=== PATIENT | female | born 1965 | race Caucasian/White ===

== ENCOUNTER → 2020-10-05 13:03 | Outpatient (BNVA) | payer OTHER, SELFPAY | PROVIDERS: PCP Orthopaedic Surgery; Referring Provider Orthopaedic Surgery; Visit Provider Surgery | DX: Z76.89 Persons encountering health services in other specified circumstances (principal) ==

== ENCOUNTER 2020-10-18 07:16 | Outpatient (REF) | payer OTHER, SELFPAY ==
--- NOTE | 2020-10-18 07:27 | ECG_ITS ---
Test Reason : ANESTHESIA PRE OP Blood Pressure : / mmHG Vent. Rate : 079 BPM Atrial Rate : 079 BPM P-R Int : 152 ms QRS Dur : 094 ms QT Int : 372 ms P-R-T Axes : 063 024 058 degrees QTc Int : 426 ms Normal sinus rhythm Normal EKG When compared with ECG of 10-APR-2020 18:44, No significant change was found Referred By: Tg Black Electronically Signed By:JOVANI MYERS
[2020-10-18 07:58] LABS: Glucose Urine UA NEG (NEG); Leukocyte Esterase Urine NEG (NEG); Nitrite Urine NEG (NEG); PH 5.5 (5.0-8.0); Specific Gravity - Urine 1.025 (1.005-1.025); Urine Blood NEG (NEG); Urine Ketones NEG (NEG); Urine Protein NEG (NEG-TRACE)
[2020-10-18 08:00] LABS: Appearance Urine CLEAR; Color Urine YELLOW
[2020-10-18 08:05] LABS: Basophils Percent Auto 0.4 % (0-2); Eosinophils Absolute Auto 0.3 X10*3/uL (0.0-0.4); Eosinophils Percent Auto 3.6 % (0-4); Hematocrit 46.3 % (37-47); Hemoglobin 15.1 g/dl (12.0-16.0); Imm Gran Abs Auto 0.02 X10*3/uL (0.00-0.03); Imm Gran Pct Auto 0.3 % (0.0-0.4); Lymphocytes Absolute Auto 2.9 X10*3/uL (1.2-4.9); Lymphocytes Percent Auto 37.3 % (20-40); MANUAL DIFF FLAG NO; Mean Corpuscular HGB Conc 32.6 g/dl (31.0-35.0); Mean Corpuscular Hemoglobin 31.2 pg (27.0-33.0); Mean Corpuscular Volume 95.7 fL (80-98); Mean Platelet Volume 10.5 fL (9.4-12.3); Monocytes Absolute Auto 0.6 X10*3/uL (0.1-1.2); Monocytes Percent Auto 7.1 % (2-11); Neutrophils Absolute Auto 4.1 X10*3/uL (2.0-8.3); Neutrophils Percent Auto 51.3 % (45-73); Platelet Count 284 X10*3/uL (160-400); Red Blood Count 4.84 X10*6/uL (4.20-5.50); Red Cell Distribution Width 12.5 % (11.0-16.0); White Blood Count 7.9 X10*3/uL (4.8-10.8)
[2020-10-18 08:31] LABS: Anion Gap 12 (12-20); Blood Urea Nitrogen 16 mg/dL (9-16); Calcium 9.3 mg/dL (8.4-10.2); Carbon Dioxide 28 mmol/L (22-29); Chloride 104 mmol/L (96-108); Estimated Glomerular Filt Rate > 60; Glucose Random 115 mg/dL (60-115); Potassium 3.8 mmol/l (3.3-5.1); Sodium 140 mmol/L (135-145)
== END 2020-10-18 07:17 | disposition home or self-care (01) ==
LOC: HO.LAB 07:16
PROVIDERS: PCP Internal Medicine; Visit Provider Surgery
DX: Z01.818 Encounter for other preprocedural examination (principal); R06.02 Shortness of breath; Z20.828 Contact with and (suspected) exposure to other viral communicable diseases
CPT/HCPCS: 36415; 80048; 81003; 85025; 93005; U0003

== ENCOUNTER 2020-10-24 09:56 | Inpatient (IN) | payer OTHER, SELFPAY ==
[2020-10-16 13:59] VITALS: BMI 25.0
--- NOTE | 2020-10-23 10:15 | HO.ANESPROP2 ---
Documented by User: Shantel Levi 10/23/20 10:24 HPI - Anesthesia Eval Consult details Narrative: 54yo F for Hernia Repair Incisional, w/ mesh Severe PONV after 11/2018 bowel case, pt had post-op ileus PMFSH Past Medical History Medical History ACL tear Anxiety Back pain History of small bowel obstruction Knee MCL sprain Knee pain Patellofemoral arthritis of left knee PONV (postoperative nausea and vomiting) Shortness of breath Family History Family History Father Lung disease Mother Hypertension Sister No problems noted. Son No problems noted. Daughter No problems noted. Surgical History Surgical History H/O colectomy H/O lithotripsy H/O vaginal surgery History of arthroscopy of right knee History of colostomy History of colostomy reversal Hx of appendectomy Hx of colonoscopy Hx of cystoscopy Previous back surgery Social History Social History (Updated 10/24/20 @ 07:33 by Deann Easley) Alcohol intake: current Alcohol intake frequency: a few times a month Smoking Status: Current every day smoker Tobacco Type: Cigarette Packs Per Day: 0 Cigarettes Per Day: 4 Years Smoked: 10+ Smoked in Last 30 Days: Yes Meds Allergies Allergy/AdvReac Type Severity Reaction Status Date / Time morphine [MORPHINE] Allergy Intermediate RASH, Verified 10/24/20 06:25 facial itching lorazepam [LORAZEPAM] Allergy Unknown DISORIENTATED- Verified 10/24/20 06:25 DEPRESSION Home Medications Medication Instructions Recorded Confirmed Type dicyclomine 20 mg tablet 20 mg PO .qhs PRN tab 10/05/20 10/16/20 History polyethylene glycol 3350 17 17 g PO DAILY PRN 10/05/20 10/16/20 History gram/dose oral powder Exam Exam Date and Time: October 23, 2020 1015 Height,Weight and Vital Signs: Height 5 ft 6 in Weight 70.307 kg Pertinent Lab Results Pertinent Lab Results: Laboratory Tests 10/18/20 07:30 Blood Type O Positive Antibody Screen NEGATIVE Laboratory Tests 10/18/20 10/18/20 07:35 07:35 WBC 7.9 Hgb 15.1 Hct 46.3 Plt Count 284 Sodium 140 Potassium 3.8 Chloride 104 Carbon Dioxide 28 BUN 16 Creatinine 0.83 Narrative Narrative: EKG 09/2020: Normal sinus rhythm Normal EKG When compared with ECG of 10-APR-2020 18:44, No significant change was found Assessment and Plan Assessment Anesthesia Assessment: Chart Reviewed Documented by User: Deann Easley 10/24/20 07:35 PMFSH Past Medical History Medical History ACL tear Anxiety Back pain History of small bowel obstruction Knee MCL sprain Knee pain Patellofemoral arthritis of left knee PONV (postoperative nausea and vomiting) Shortness of breath Family History Family History Father Lung disease Mother Hypertension Sister No problems noted. Son No problems noted. Daughter No problems noted. Family history of problems with anesthesia: No Surgical History Surgical History H/O colectomy H/O lithotripsy H/O vaginal surgery History of arthroscopy of right knee History of colostomy History of colostomy reversal Hx of appendectomy Hx of colonoscopy Hx of cystoscopy Previous back surgery History of Problems with Anesthesia: Yes (PONV after colostomy reversal) Social History Social History (Updated 10/24/20 @ 07:33 by Deann Easley) Alcohol intake: current Alcohol intake frequency: a few times a month Smoking Status: Current every day smoker Tobacco Type: Cigarette Packs Per Day: 0 Cigarettes Per Day: 4 Years Smoked: 10+ Smoked in Last 30 Days: Yes Meds Allergies Allergy/AdvReac Type Severity Reaction Status Date / Time morphine [MORPHINE] Allergy Intermediate RASH, Verified 10/24/20 06:25 facial itching lorazepam [LORAZEPAM] Allergy Unknown DISORIENTATED- Verified 10/24/20 06:25 DEPRESSION Home Medications Medication Instructions Recorded Confirmed Type dicyclomine 20 mg tablet 20 mg PO .qhs PRN tab 10/05/20 10/16/20 History polyethylene glycol 3350 17 17 g PO DAILY PRN 10/05/20 10/16/20 History gram/dose oral powder Exam Height,Weight and Vital Signs: Vital Signs Temp Pulse Resp BP Pulse Ox 10/24/20 06:35 96.9 F 81 18 127/77 99 Pertinent Lab Results Pertinent Lab Results: Lab Results 10/18/20 10/24/20 Range/Units 07:30 06:19 COVID-19 (REBECCA) Negative (Negative) COVID-19 Clin Com See Note Blood Type O Positive Antibody Screen NEGATIVE Airway Mallampati Class: II TM Dist: >3cm Neck ROM: Full Loose/Missing/Broken Teeth: No Heart: RRR Lungs: CTAB Assessment and Plan Final Anesthetic Review NPO: Yes ASA Class: II Final Preanesthetic Review: No Changes in Pt Med Stat, Meds/Allgs Chart Reviewed, Consent Obtained/Reviewed and Anes Risks/Benef Reviewed Patient Risk: Low Procedure Risk: Intermediate Assessment/Block/Sedation in SS: Assess/Block/Sedation-SS Anesthetic Plan Anesthetic Plan: GA Disposition: Standard PACU
--- NOTE | 2020-10-23 15:06 | MHC.SHP ---
Pre-Procedural Eval Section B Chief Complaint: hernia Allergies: Allergies Allergy/AdvReac Type Severity Reaction Status Date / Time morphine [MORPHINE] Allergy Intermediate RASH, Unverified 10/16/20 13:40 facial itching lorazepam [LORAZEPAM] Allergy Unknown DISORIENTATED- Unverified 10/16/20 13:40 DEPRESSION Plan I have reviewed the history and physical and performed a pertinent physical examination on my patient. No changes have occurred unless specified.
[2020-10-24] VITALS (18 sets, daily range): BP systolic 112–153; BP diastolic 60–98; PULSE 74–96; RESP 12–22; TEMP 36.1–37.3; O2SAT 95–100
[2020-10-24 06:47] LABS: COVID-19 Test Negative (Negative)
[2020-10-24] MEDS: Lactated Ringers 1,000 ML 100 ML IVCONT (07:08)
[2020-10-24] MEDS: Scopolamine 1.5 MG PATCH.TD.3 TRANSDERMA (07:08)
[2020-10-24] MEDS: HYDROmorphone HCl 0.5 MG/0.5 ML SYRINGE 0.25 MG IVPUSH ×8 (10:08→20:00)
--- NOTE | 2020-10-24 10:10 | PM.OP ---
Brief Operative Note Date of Service: 10/24/20 Pre-op diagnosis: Symptomatic incisional hernia Post-op diagnosis: same Procedure: Laparoscopic and open components of incisional hernia repair with mesh, lysis of adhesions, and Jose block Implants: Ventralight ST hernia mesh size 15 cm x 20 cm and capsure attacks Surgeon: Tg Black MD Anesthesia: GETA Hand Gluer And Slicer: Roselia Clark Estimated blood loss (mL): 10 Pathology: none sent Condition: stable Disposition: PACU
--- NOTE | 2020-10-24 10:10 | PM.DS ---
DS: Providers Provider Date of Service: 10/25/20 Primary care physician: Chaka Gore MD DS: Medications Discharge Medications Home Medications: Home Medications Medication Instructions Recorded Confirmed dicyclomine 20 mg tablet 20 mg PO .qhs PRN tab 10/05/20 10/16/20 polyethylene glycol 3350 17 17 g PO DAILY PRN 10/05/20 10/16/20 gram/dose oral powder DS: Summary Time Spent with Patient Time attestation: DATE OF SERVICE: October 24, 2020 ADMITTING DIAGNOSES: incisional hernia s/p colectomy and colostomy reversal DISCHARGE DIAGNOSES: same PROCEDURE PERFORMED: open and laparoscopic repair of incisional hernia with mesh DISCHARGE MEDICATIONS: 1. DISCHARGE INSTRUCTIONS: She should ambulate while at home to avoid any bloodclots in her lower extremities. She should call with any questions or concerns such as increase in abdominal pain, persistent nausea, vomiting, redness and drainage from her incisions, fever, chills, shortness of breast, or chest pain beyond what is normal for her. The patient should avoid all heavy lifting greater than 5 pounds for the next 4 weeks. The patient is already scheduled to follow up with me in 2 weeks, but should call the office with any questions prior to that follow up appointment. The patient should not advance her diet until she is seen in the office for the 2 week appointment. HOSPITAL COURSE: The patient was admitted after undergoing laparoscopic and open incisional hernia with mesh. She was started on a clear liquid diet the day of surgery and was tolerating well without nausea or vomiting. Her pain was controlled on IV Dilaudid, Acetaminophen and po oxycodone. All labs were within normal limits. On post-operative day #1 she was feeling better, and she was tolerating her diet well. She was discharged home with KLAUS drain in place DISCHARGE DISPOSITION: Home.Total time spent providing and/or coordinating discharge services: 30 minutes Physical Exam Vital Signs: Vital Signs: Last Vital Signs Temp 98.9 F 10/24/20 09:58 Pulse 94 10/24/20 10:03 Resp 14 10/24/20 10:03 BP 140/82 H 10/24/20 10:03 Pulse Ox 100 10/24/20 10:03 Body Mass Index 25.0 DS: Data Data Completed and Pending Labs on day of discharge: 10/18/20 07:30 Type and Screen Routine 10/24/20 06:19 COVID-19 ID NOW (Gonzalez) Stat 10/24/20 06:20 Acetaminophen [Ofirmev] 1,000 mg in 100 ml IV PREOP Scopolamine [Transderm-Scop] 1.5 mg TRANSDERMA PREOP ONE cefoTEtan disod/Dextrose,Iso [Cefotan] 2 gm in 50 ml IV PREOP 10/24/20 Breakfast NPO Diet Laboratory Last Values COVID-19 (REBECCA) Negative (Negative) 10/24/20 06:19 COVID-19 Clin Com See Note 10/24/20 06:19 Blood Type O Positive 10/18/20 07:30 Antibody Screen NEGATIVE 10/18/20 07:30 Discharge Plan Discharge Anticipated Discharge Date/Time: 10/25/20 11:06 Patient Disposition: Home, Self-Care Referrals: Chaka Gore MD [Primary Care Provider] - Discharge Medications: New docusate sodium [Colace] 100 mg capsule 100 mg PO BID Qty: 30 RF: 1 hydromorphone [Dilaudid] 2 mg tablet 2 mg PO Q4H PRN (Reason: pain (scale score 7-10)) Qty: 40 RF: 0 acetaminophen 500 mg tablet 1,000 mg PO Q6H Qty: 60 RF: 1 Continued dicyclomine 20 mg tablet 20 mg PO .qhs PRN (Reason: Abdominal Discomfort) RF: 0 Discontinued polyethylene glycol 3350 17 gram/dose powder 17 g PO DAILY PRN (Reason: Constipation) RF: 0 Discharge Orders: Discharge Order (Routine); Ordered 10/25/20 Ordered By: Tg Black Diet: regular diet Activity on Discharge: No heavy lifting Activity Restrictions/Additional Instructions: No tub baths, sex or returning to work until discussed at first post op appointment. No exercise, alcohol, tobacco or illegal drug use. Continue to use incentive spirometer hourly while awake. Walk in home for 5- 10 minutes every 2 hours during the first week. Continue phase 3 diet until first post op appointment. Follow all instructions in the bariatric handbook and call with any questions.Discharge Instructions 1. Please call your doctor or come back to the emergency room should any new symptoms arise. 2. You will receive a courtesy call from [facility] 24-48 hours after discharge. 3. Activity: abstain from alcohol, practice limited stair climbing, no bending, no driving, no exercise, no illicit substances, no lifting, no sex, no tub bath, no work. (*no heavy lifting for 8 weeks) 4. Diet: regular 5. Dressing Change/Wound Care: Keep dressings intact as long as they are clean and dry. If the area is tender, you may apply an ice pack for short intervals (no more than 20 minutes on, followed by at least 20 minutes off). Do not apply heat. Do not use creams, lotions, or topical antibiotics unless instructed to do so by your surgeon. These can cause infection or allergic reaction. 6. Call your doctor if: - Your temperature exceeds 101.5 F - You experience excessive pain or swelling - You have an unexpected reaction to medication - You have excessive bleeding - You experience continued vomiting/nausea - Your incision begins to separate - Your incision shows signs of infection such as increased redness, swelling, excessive pain, heat, or drainage (light blood or clear fluid is normal) 7. Drain care - you have 1 drain that needs to be emptied daily. Please call if drainage becomes bloodier, should progressivley become clearer, or has cloudy fluid. 8. General instructions: No lifting greater than 5 lbs for the next 4 weeks[address] driving within 24 hours of taking narcotic pain medications. If you do not move your bowels in the next 2 days, please take milk of magnesia over the counter. Please follow the post op diet and do not advance your diet until you are seen in the office in about 2 weeks. Please walk around your home every hour or two to prevent blood clots from forming in your legs. You do not need to wake from sleeping to walk. Please sleep in a bed or couch to prevent kinking at the hips and knees. Please take your incentive spirometer (your lung telephonic nurse) home with you and use it for the next few days to prevent pneumonias. You may shower, no hot tubs, baths or swimming pools. Please call the office with any questions or concerns such as increasing abdominal pain, fever, chills, shortness of breath, chest pain, leg pain or swelling, or redness or drainage from your incisions. Do not hesitate to contact the office with any questions at . Visit Report Forms: Patient Portal Discharge page Care Plan Goals: resolution of abd pain Health Concerns: incisional hernia Plan of Treatment: see discharge instructions
--- NOTE | 2020-10-24 11:04 | OP_ITS ---
SURGEON: Tg Black MD PREOPERATIVE DIAGNOSIS: Incisional hernia. POSTOPERATIVE DIAGNOSIS: Incisional hernia. PROCEDURE PERFORMED: Open and laparoscopic component of an incisional hernia repair with mesh. ESTIMATED BLOOD LOSS: Less than 10 mL. COMPLICATIONS: None. ANESTHESIA: General endotracheal. ASSISTANTS: Roselia Clark PA-C. SPECIMENS: None. CONDITION: Postprocedure, good. DESCRIPTION OF PROCEDURE: The patient was brought into the operating room, placed on operating table in supine position. Normal DVT prophylaxis was instituted. The patient received 2 g of IV cefotetan preoperatively. General anesthesia was induced. The abdomen was prepped and draped in normal sterile fashion using ChloraPrep. Next, a safety time-out was performed. Next, a mixture of 1% lidocaine with epinephrine, 0.25% Marcaine plain was used to anesthetize the planned incision site in the midline. A #15 scalpel was used to make an incision in the midline overlying the previous laparotomy incision. Subcutaneous tissues were dissected down to the level of the hernia defect. The hernia defect was opened. A finger was placed into the abdomen to protect any underlying viscera. The fascia was then opened to the length of the skin incision. The defect was about 9 cm long x 6 cm wide. We then cleared off the fascia anteriorly for about 6 cm circumferentially around the edges of the hernia defect. We then placed three 5 mm laparoscopic ports under direct vision during the open portion of the case. We placed one in the left lower quadrant and two in the right lateral abdomen. We placed a 12 mm port in the left upper quadrant laterally. We then closed the midline fascia using several interrupted #1 Prolene sutures of [id number]. We did that, tied the sutures down. We chose a suitable size mesh, which was a 15 cm x [address] mesh with Echo 2 Positioning System. We placed this mesh intra-abdominally and positioned it, so that it was lying centrally over the hernia defect. We then tied down all of these fascial closure sutures. There was no hernia defect. We then insufflated the abdomen to 15 mmHg. We used a 5 mm 30 degree laparoscope and placed this into the left lower quadrant 5 mm port. We could visualize the mesh in good position centrally lying over the hernia defect. There was no leaking of any gas from the midline surgical incision closure. We then used a CapSure tacker to tack the mesh at the edges of the mesh circumferentially. We then removed the Echo Positioning System through the 12 mm port and all components of the positioning system was intact when removed. We then continued to tack at the edges of mesh circumferentially using both the left-sided port and the right-sided port, so that the mesh was well apposed to the abdominal wall and there was no laxity within the mesh. We then used a second CapSure tacker to place surrounding the fascial closure. The mesh was well apposed to the abdominal wall. There was no evidence of any laxity in the mesh. The viscera appeared to be normal underneath as well. We took laparoscopic pictures of the completed mesh repair. We then removed the 5 mm ports from the right side of the abdomen. Of note, we did perform a tap block through left and right side of the abdomen prior to tacking the mesh for better pain control postoperatively. We then desufflated the abdomen through the last remaining 2 ports on the left side of the abdomen and removed the last port. We placed a #7 Leo-Bruno drain in the subcutaneous tissues overlying the fascial closure site. We brought the tubing out of the subcutaneous 5 mm port site in the left lower quadrant. We secured the tubing to the abdominal wall using a 2-0 nylon suture. We then closed the deep dermal tissues in the midline using a running 3-0 Vicryl suture. We also tacked down the umbilicus to the fascia using a single interrupted suture of 3-0 Vicryl. We then reapproximated the laparoscopic ports using a 3-0 Vicryl suture in a subcuticular manner. We closed the skin with santi. All counts were correct at the end of the case. There were no complications. The Leo-Bruno drain was placed above suction. We placed a 4 x 4 dressings over the midline surgical incision. Steri-Strips on the laparoscopic ports and Band-Aids on the laparoscopic port sites. We placed tape on the midline surgical incision. All counts were correct at the end of the case. There were no complications. The patient was awakened in stable condition prior to extubation and transferred to recovery room. FINDINGS: A single adhesion of the small bowel to the lower anterior midline in addition to a 9 cm long x 6 cm wide incisional defect at the midline. MD VENECIA Stokes/RAEGAN / [id number]
[2020-10-24] MEDS: Lactated Ringers 1,000 ML 125 ML IVCONT ×2 (11:56→20:39)
[2020-10-24] MEDS: ondansetron HCL 4 MG/2 ML VIAL IVPUSH ×2 (12:37→17:46)
[2020-10-24] MEDS: oxyCODONE HCl Immed Release 5 MG TABLET PO ×2 (17:45→21:59)
[2020-10-24] MEDS: cefoTEtan disodium 2 GM in 0.9 % Sodium Chloride 50 ML IV (20:29)
[2020-10-24] MEDS: 0.9 % Sodium Chloride Flush 3 ML SYRINGE IVFLUSH (20:37)
[2020-10-25] VITALS: BP 146/70; PULSE 83; RESP 20; TEMP 36.6; O2SAT 93
[2020-10-25] MEDS: HYDROmorphone HCl 0.5 MG/0.5 ML SYRINGE 0.25 MG IVPUSH ×2 (00:08→01:07)
[2020-10-25] MEDS: oxyCODONE HCl Immed Release 5 MG TABLET PO ×3 (02:28→10:56)
[2020-10-25] MEDS: ondansetron HCL 4 MG/2 ML VIAL IVPUSH ×2 (02:29→10:56)
[2020-10-25 03:42] VITALS: BP 139/72; PULSE 78; RESP 20; TEMP 36.9; O2SAT 96
[2020-10-25] MEDS: HYDROmorphone HCl 0.5 MG/0.5 ML SYRINGE IVPUSH ×3 (04:19→12:22)
[2020-10-25 06:44] LABS: MANUAL DIFF FLAG NO
[2020-10-25 07:17] LABS: Basophils Percent Auto 0.2 % (0-2); Eosinophils Percent Auto 0.1 % (0-4); Hematocrit 41.5 % (37-47); Hemoglobin 13.4 g/dl (12.0-16.0); Imm Gran Abs Auto 0.04 X10*3/uL (0.00-0.03); Imm Gran Pct Auto 0.3 % (0.0-0.4); Lymphocytes Absolute Auto 2.1 X10*3/uL (1.2-4.9); Lymphocytes Percent Auto 15.5 % (20-40); Mean Corpuscular HGB Conc 32.3 g/dl (31.0-35.0); Mean Corpuscular Hemoglobin 30.9 pg (27.0-33.0); Mean Corpuscular Volume 95.8 fL (80-98); Mean Platelet Volume 11.8 fL (9.4-12.3); Monocytes Absolute Auto 1.1 X10*3/uL (0.1-1.2); Monocytes Percent Auto 7.9 % (2-11); Neutrophils Absolute Auto 10.2 X10*3/uL (2.0-8.3); Platelet Count 188 X10*3/uL (160-400); Red Blood Count 4.33 X10*6/uL (4.20-5.50); Red Cell Distribution Width 12.5 % (11.0-16.0); White Blood Count 13.4 X10*3/uL (4.8-10.8)
[2020-10-25 07:39] LABS: Anion Gap 13 (12-20); Blood Urea Nitrogen 9 mg/dL (9-16); Calcium 8.3 mg/dL (8.4-10.2); Carbon Dioxide 24 mmol/L (22-29); Chloride 106 mmol/L (96-108); Creatinine Clr Calc Pharmacy 84.6; Estimated Glomerular Filt Rate > 60; Glucose Random 105 mg/dL (60-115); Potassium 4.3 mmol/l (3.3-5.1); Sodium 139 mmol/L (135-145)
[2020-10-25 07:42] VITALS: BP 139/65; PULSE 92; RESP 16; TEMP 37.1; O2SAT 94
[2020-10-25 08:21] VITALS: RESP 16
--- NOTE | 2020-10-25 08:59 | PM.PNGS ---
Subjective Subjective Date of Service: 10/25/20 Interval history: Patient reports having incisional soreness and abdominal muscle soreness. She reports it is much better than it was last night. She has been up and ambulating in the hallway and using incentive spirometer. Vital signs are within normal limits. She is tolerating clear liquid diet. She denies nausea or vomiting. Physical Exam Vital Signs: Vital Signs: Last Vital Signs Temp 98.7 F 10/25/20 07:42 Pulse 92 10/25/20 07:42 Resp 16 10/25/20 08:21 BP 139/65 10/25/20 07:42 Pulse Ox 94 10/25/20 07:42 Body Mass Index 25.0 Const: General: cooperative, healthy appearing, comfortable, no acute distress, well developed and other (Wearing glasses) GI: Inspection: No Abdominal wall edema, Yes distended, Yes incision (Dressings clean dry intact on abdominal wall no drainage) and Yes other (KLAUS serosanguineous) Palpation (GI): Soft to palpation, not firm, Tenderness to palpation present (GI) (Appropriate incisional tenderness), no guarding, not rigid and hepatosplenomegaly present Extrem: General: Yes normal to inspection, Yes full ROM, Yes no clubbing, cyanosis or edema, Yes no pedal edema and Yes no calf tenderness Progress Note: A&P Assessment and plan (1) Incisional hernia: Status: Acute (2) History of incisional hernia repair: Problem details: 10/24/2020, laparoscopic and open incisional hernia repair with mesh Status: Acute Assessment and Plan: This is a 54-year-old lady who is postoperative day 1. Status post laparoscopic and open incisional hernia repair with mesh doing well on postoperative day 1. Patient will be advanced to regular diet and be discharged home. Patient will be discharged home with her Leo-Bruno drain in place for the next couple of weeks until the dry Exon Bruno drain output decreases significantly. Patient will follow-up with me as an outpatient in about 2 weeks time frame. She will avoid all heavy lifting greater than 5 lb for the next 6-8 weeks. Fall Risk Details Current Medications: Current Medications Generic Name Dose Route Start Last Admin Trade Name Freq PRN Reason Stop Dose Admin Hydromorphone HCl 0.5 mg 10/25/20 02:27 10/25/20 08:21 Hydromorphone Hcl 0.5 Mg/0.5 Ml Syringe IVPUSH 0.5 mg Q4H PRN Administration Pain, Severe (Pain Scale 7-10) Lactated Ringer's 1,000 mls @ 125 mls/hr 10/24/20 10:00 10/25/20 05:07 Lr IVCONT Infused .Q8H SUELLEN Infusion Acetaminophen 1,000 mg in 100 mls @ 16.7 mls/hr 10/25/20 06:00 10/25/20 08:30 Ofirmev IV Not Given .Q6H SUELLEN Ondansetron HCl 4 mg 10/25/20 02:30 10/25/20 03:39 Ondansetron Hcl 4 Mg/2 Ml Vial IVPUSH Not Given Q8H SUELLEN Oxycodone HCl 5 mg 10/25/20 02:21 10/25/20 06:54 Oxycodone Hcl Immed Release 5 Mg Tablet PO 5 mg Q4H PRN Administration Pain, Moderate (Pain Scale 4-6 Sodium Chloride 3 ml 10/25/20 08:00 10/25/20 07:59 0.9 % Sodium Chloride Flush 3 Ml Syringe IVFLUSH Not Given QSHIFT SUELLEN Time Spent With Patient Time: Total time spent is greater than 50% in coordination of care (as documented) at patient's floor/unit and/or counseling patient: Time with patient: less than 15 minutes
--- NOTE | 2020-10-25 09:38 | HO.POSTANES ---
Post Anesthesia Evaluation Post Anesthesia Evaluation Vital Signs: Vital Signs Temp Pulse Resp BP Pulse Ox 10/25/20 08:21 16 10/25/20 07:42 98.7 F 92 16 139/65 94 10/25/20 03:42 98.4 F 78 20 139/72 96 10/25/20 00:00 97.9 F 83 20 146/70 H 93 Anesthesia: General Mental Status: Awake Pain Control: Satisfactory Nausea/Vomiting: None Hydration: Adequate Anesthesia-Related Issues: No Anes. Related Issues
--- NOTE | 2020-10-25 10:06 | MHC.CM.PN ---
Pt reports she lives at home with her mother and adult children. Pt reports she is independent at baseline and had no services or DME [employer]. Pt reports she has a HCP completed already naming her daughter as her agent. Pt confirms her PCP is Chaka Gore. Pt reports her only concern upon DC is pain control. She is aware she will be discharged today but asks that it be later in the day to ensure she is ready. Pt will DC home with no services Family will transport.
[2020-10-25 11:40] VITALS: BP 152/68; PULSE 97; RESP 18; TEMP 36.6; O2SAT 92
[2020-10-25 12:22] VITALS: RESP 16
== END 2020-10-25 12:55 | disposition home or self-care (01) | DRG 227 ==
LOC: HO.S3 10:27
PROVIDERS: Physician Assistant; Admitting Provider Surgery; PCP Internal Medicine; Visit Provider Surgery
PROC: 0WUF0JZ Supplement Abdominal Wall with Synthetic Substitute, Open Approach (ICD-10-PCS; principal; 2020-10-24 07:30)
DX: K43.2 Incisional hernia without obstruction or gangrene (principal); Z20.828 Contact with and (suspected) exposure to other viral communicable diseases; Z79.899 Other long term (current) drug therapy
CPT/HCPCS: 36415; 80048; 85025; 86850; 86900; 86901; 87635; 99024; C1781; J0131; J1100; J1170; J2250; J2405; J3010

== ENCOUNTER 2020-10-26 05:56 | Inpatient (IN) | payer OTHER, SELFPAY ==
[2020-10-26] VITALS (13 sets, daily range): BP systolic 139–175; BP diastolic 75–89; PULSE 87–107; RESP 15–22; TEMP 36.6–37.4; O2SAT 91–97; BMI 25.8
--- NOTE | 2020-10-26 06:10 | CT_ITS ---
EXAMINATION: CT ABDOMEN AND PELVIS WITH CONTRAST CLINICAL INFORMATION: Abdominal pain, postop COMPARISON: 04/10/2020 TECHNIQUE: Multidetector volumetric images were obtained from the superior aspect of the liver through the pubic symphysis following administration 85 mL of Omnipaque 350 intravenous contrast. Sagittal and coronal reformatted images were obtained on the technologist's workstation. Oral contrast: No This CT examination was performed using dose optimization techniques as appropriate, variously including the following: *Automated exposure control *Adjustment of mA and/or kV according to patient size (this includes techniques or standardized protocols for targeted exams where dose is matched to indication/reason for exam; i.e. extremities or head) *Use of iterative reconstruction technique DLP: 668 mGy-cm FINDINGS: LUNG BASES: Bibasilar right greater than left minor airspace disease possibly dependent atelectasis versus minimal infiltration particularly at the right base. Trace left-sided layering pleural effusion and minimal right-sided pleural effusion. LIVER, GALLBLADDER, AND BILIARY TREE: The liver is normal in size, shape, and attenuation. Tiny low-density focus subcapsular location segment 6 5/6 appears similar to baseline favoring a small tiny cyst. No suspicious focal hepatic lesion or biliary ductal dilatation is present. The gallbladder is unremarkable with no evidence of radiopaque gallstones, gallbladder wall thickening, or obvious pericholecystic inflammatory changes. PANCREAS: Unremarkable. SPLEEN: Unremarkable. ADRENAL GLANDS: Low-density left adrenal nodule unchanged from older exams going back to 2019 favoring a benign lesion. Right adrenal gland unremarkable. KIDNEYS AND URETERS: The kidneys are normal in size, shape, and attenuation. No hydronephrosis, hydroureter, or calculi seen. No perinephric stranding. BLADDER: Unremarkable. GASTROINTESTINAL TRACT: This recently postoperative patient, there is generalized mild small bowel distention which is fluid-filled. Distal small bowel actually measures up to 2.8 cm. There is no bowel wall thickening. Relative abrupt transition zone is noted within the right abdomen within the right lower quadrant with the terminal ileum appears decompressed. There are changes consistent with resection of the sigmoid colon with a primary anastomosis which appears grossly intact. The colon is relatively decompressed and the pattern is consistent with a mechanical small bowel obstruction at the level of the ileum within the right lower quadrant. No fluid collection. ABDOMINAL WALL: Recent postsurgical changes with skin santi in place. There are small amounts of cutaneous air and infiltration without any organized fluid collection. There is a drainage catheter in place. No dehiscence of the abdominal wall. Air tracks into the right lateral abdominal wall. LYMPH NODES: Normal. VASCULAR: Unremarkable. PELVIC VISCERA: IUD in place without migration. No pelvic mass or fluid collection. OSSEOUS STRUCTURES: Fusion changes again noted at L4-S1. No gross evidence for any hardware failure. CT/CT abdomen pelvis w con IMPRESSION: 1. Abnormally dilated small bowel which is fluid-filled with a transition zone right abdomen as above consistent with partial small bowel obstruction. Small bowel loops are fluid-filled and boggy and surgical assessment is indicated. The cause of obstruction is indeterminate but may be related to matted adhesions in this patient with history of previous surgery. No internal hernia grossly. 2. Other chronic finding stable. 3. Abdominal wall findings as above a drainage catheter in place.
--- NOTE | 2020-10-26 06:13 | ED.ABDPAIN ---
HPI - Abdominal Pain General Chief Complaint: Abdominal Pain Stated Complaint: Post op - abd pain Time Seen by Provider: 10/26/20 05:59 Source: patient and old records reviewed Mode of arrival: ambulatory Limitations: no limitations History of Present Illness HPI narrative: 54 yo female with recent surgery on 10/24 repair of incisional hernia laparascopic with mesh - she states she has had abdominal pain since the nausea/vomiting - she went home yesterday and has felt sick so she came to ED due to vomiting and severe pain, notes no increase in drainage output MD elicited complaint: abdominal pain Pertinent past history: other (recent surgery ) Onset (ago): day(s) (2) Pain Consistency: constant Location: diffuse Severity: severe Quality: stabbing and fullness Radiation: none Migration to: no migration Exacerbating factors: vomiting and movement Relieving factors: nothing Context: recent surgery/procedure Associated symptoms: nausea and vomiting Treatments prior to arrival: prescription analgesics (she cannot keep the oral pain medications down) Related Data Home Medications Medication Instructions Recorded Confirmed dicyclomine 20 mg tablet 20 mg PO .qhs PRN tab 10/05/20 10/16/20 Previous Rx's Medication Instructions Recorded acetaminophen 1,000 mg PO Q6H #60 tab 10/25/20 docusate sodium [Colace] 100 mg PO BID #30 cap 10/25/20 hydromorphone [Dilaudid] 2 mg PO Q4H PRN #40 tab 10/25/20 ondansetron HCl [Zofran] 4 mg PO Q6H PRN #20 tab 10/25/20 Allergies Allergy/AdvReac Type Severity Reaction Status Date / Time morphine [MORPHINE] Allergy Intermediate RASH, Verified 10/24/20 06:25 facial itching lorazepam [LORAZEPAM] Allergy Unknown DISORIENTATED- Verified 10/24/20 06:25 DEPRESSION Review of Systems Review of Systems Constitutional : No Weight loss, No Fever, pos Chills ENT/Mouth : No sore throat, No Rhinorrhea Eyes: No Swelling, No Redness Cardiovascular : No Chest Pain, No SOB, NoEdema Respiratory : No Cough, No Sputum, No Wheezing Gastrointestinal : Positive Nausea, Positive Vomiting, no Diarrhea, positive abdominal Pain, No Hematochezia, No Melena, pos constipation, no flatus Genitourinary : No Dysuria, No Urinary Frequency, No Hematuria, No Urgency Musculoskeletal : No joint pain, No Myalgias, No Joint Swelling Skin : No Skin Lesions, No rash Neuro : pos Weakness, No Numbness, No Dizziness, No Headache Psych : No Anxiety/Panic, No Depression Heme/Lymph: No Bruising, No Lymphadenopathy Endocrine : No Polyuria, No Polydipsia All other systems reviewed and are negative. Physical Exam Vital Signs: Vital Signs: Last Vital Signs Temp 98.9 F 10/26/20 06:10 Pulse 104 H 10/26/20 06:10 Resp 22 H 10/26/20 06:10 BP 147/86 H 10/26/20 06:10 Pulse Ox 94 10/26/20 06:10 Body Mass Index 25.8 Appearance: Alert. Oriented X3. Anxious in pain, moderate acute distress. Eyes: Pupils equal, round and reactive to light. ENT: Pharynx normal. Neck: Normal inspection. Neck supple. CVS: Normal heart rate and rhythm. Pulses normal. Respiratory: No respiratory distress. Breath sounds normal. Abdomen: Soft and diffusely tender with guarding, distended, decreased bowel sounds, incisions are c/d/i, ss fluid in drain, patient wearing binder on arrival Skin: Skin warm and dry. Normal skin color. Normal skin turgor. Extremities: No lower extremity edema. No calf ttp Neuro: Oriented X 3. No motor deficit. No sensory deficit. Course Course Course Narrative: signed out to Dr. Loo pending workup MDM - Abdominal Pain MDM Narrative Medical decision making narrative: 54 yo female with recent laparascopic surgery s/p incision hernia repair with mesh here with reports of severe abdominal pain, constipation, no flatus and n/v will need labs, lactic acid, CT scan for fluid collection/ileus, IV dilaudid for pain, dispo per results and findings. Discharge Plan Discharge Clinical Impression: Abdominal pain Qualifiers: Abdominal location: generalized Qualified Code(s): R10.84 - Generalized abdominal pain Prescriptions: No Action docusate sodium [Colace] 100 mg capsule 100 mg PO BID Qty: 30 RF: 1 hydromorphone [Dilaudid] 2 mg tablet 2 mg PO Q4H PRN (Reason: pain (scale score 7-10)) Qty: 40 RF: 0 acetaminophen 500 mg tablet 1,000 mg PO Q6H Qty: 60 RF: 1 ondansetron HCl [Zofran] 4 mg tablet 4 mg PO Q6H PRN (Reason: nausesa) Qty: 20 RF: 1 dicyclomine 20 mg tablet 20 mg PO .qhs PRN (Reason: Abdominal Discomfort) RF: 0 PMFSH Past Medical History Attestation statement: The following information was validated with the patient. Medical History ACL tear Anxiety Back pain History of small bowel obstruction Knee MCL sprain Knee pain Patellofemoral arthritis of left knee PONV (postoperative nausea and vomiting) Preoperative examination Shortness of breath Surgical History H/O colectomy H/O lithotripsy H/O vaginal surgery History of arthroscopy of right knee History of colostomy History of colostomy reversal History of incisional hernia repair Hx of appendectomy Hx of colonoscopy Hx of cystoscopy Previous back surgery Family History Family History Father Lung disease Mother Hypertension Sister No problems noted. Son No problems noted. Daughter No problems noted. Social History Social History Alcohol intake: current Alcohol intake frequency: a few times a month Smoking Status: Current every day smoker Tobacco Type: Cigarette Packs Per Day: 0 Cigarettes Per Day: 4 Years Smoked: 10+ Advance Directives: No service: No Current occupational status: employed
[2020-10-26] MEDS: HYDROmorphone HCl 1 MG/ML SYRINGE IVPUSH ×4 (06:31→12:52)
[2020-10-26] MEDS: ondansetron HCL 4 MG/2 ML VIAL IVPUSH ×2 (06:31→17:55)
[2020-10-26] MEDS: 0.9 % Sodium Chloride 1,000 ML 999 ML IVCONT (06:32)
[2020-10-26 06:33] LABS: MANUAL DIFF FLAG NO
--- NOTE | 2020-10-26 06:37 | PC.NURSE ---
PT ARRIVED TO ED MOANING, HUNCHED OVER IN PAIN. PT BROUGHT DIRECTLY INTO ROOM 5. DR GO TO BEDSIDE. PT REPORTS THAT SHE HAS HAD ABD PAIN AND N/V STARTING AT 1230. STATES THAT SHE WAS DISCHARGED FROM THE HOSPITAL YESTERDAY. I TOLD THEM I WASN'T READY . PT WITH ABDOMINAL BINDER IN PLACE. REMOVED BY DR GO. ABD EXAMINED. TENDER TO TOUCH. DRESSINGS DRY AND INTACT. KLAUS DRAIN NOTED WITH SEROSANGINOUS FLUID. ABD BINDER BACK IN PLACE. IV PLACED. LABS OBTAINED AND SENT. MEDICATED ORDERED. WILL GO TO CT SCAN SOON NAUSEA/PAIN SUBSIDES.
[2020-10-26 06:38] LABS: Basophils Percent Auto 0.3 % (0-2); Eosinophils Absolute Auto 0.2 X10*3/uL (0.0-0.4); Eosinophils Percent Auto 1.4 % (0-4); Hematocrit 46.6 % (37-47); Hemoglobin 15.4 g/dl (12.0-16.0); Imm Gran Abs Auto 0.07 X10*3/uL (0.00-0.03); Imm Gran Pct Auto 0.7 % (0.0-0.4); Lymphocytes Absolute Auto 1.3 X10*3/uL (1.2-4.9); Lymphocytes Percent Auto 11.9 % (20-40); Mean Corpuscular Hemoglobin 31.1 pg (27.0-33.0); Mean Corpuscular Volume 94.1 fL (80-98); Mean Platelet Volume 10.2 fL (9.4-12.3); Monocytes Absolute Auto 0.7 X10*3/uL (0.1-1.2); Monocytes Percent Auto 6.2 % (2-11); Neutrophils Absolute Auto 8.4 X10*3/uL (2.0-8.3); Neutrophils Percent Auto 79.5 % (45-73); Platelet Count 242 X10*3/uL (160-400); Red Blood Count 4.95 X10*6/uL (4.20-5.50); Red Cell Distribution Width 12.3 % (11.0-16.0); White Blood Count 10.5 X10*3/uL (4.8-10.8)
[2020-10-26] MEDS: Metoclopramide HCl 10 MG/2 ML VIAL IVPUSH (06:50)
[2020-10-26 06:51] LABS: Lactic Acid 1.3 mmol/L (0.5-2.0)
[2020-10-26 06:52] LABS: COVID-19 Test Negative (Negative); IDNOW Serial# 9DD0AD1C
[2020-10-26 06:56] LABS: Lipase 21 U/L (8-78)
[2020-10-26 06:57] LABS: Alanine Aminotransferase 25 U/L (0-31); Albumin Level 4.1 g/dL (3.5-5.0); Alkaline Phosphatase 88 U/L (39-117); Anion Gap 15 (12-20); Aspartate Amino Transferase 29 U/L (5-31); Bilirubin Direct 0.3 mg/dL (0.0-0.5); Bilirubin Total 0.7 mg/dL (0.0-1.0); Blood Urea Nitrogen 7 mg/dL (9-16); Calcium 9.4 mg/dL (8.4-10.2); Carbon Dioxide 30 mmol/L (22-29); Chloride 99 mmol/L (96-108); Creatinine Clr Calc Pharmacy 80.9; Estimated Glomerular Filt Rate > 60; Glucose Random 131 mg/dL (60-115); Magnesium 2.2 mg/dL (1.6-2.6); Sodium 140 mmol/L (135-145); Total Protein 6.9 g/dL (6.5-8.0)
--- NOTE | 2020-10-26 06:59 | PC.NURSE ---
SECOND DOSE OF DILAUDID ADMINISTERED ALONG WITH REGLAN IV. PT TOLERATED WELL AND STATES THAT SHE IS FINALLY HAVING SOME IMPROVEMENT IN BOTH THE NAUSEA AND PAIN. DR MARTE RECEIVED SIGN OUT FROM DR. GO AND EXAMINED PATIENT. PT UPDATED ON PLAN OF CARE. PT AGREEABLE TO PLAN.
[2020-10-26] MEDS: iohexoL 350 MG/ML 100 ML INFUS..BTL IV (07:57)
[2020-10-26] MEDS: Prochlorperazine Edisylate 10 MG/2 ML VIAL IVPUSH (10:26)
--- NOTE | 2020-10-26 14:23 | PM.HPGS ---
History of Present Illness History of Present Illness Date of Service: 10/26/20 <Adriana Meyers PA-C - Last Filed: 10/26/20 14:49> 10/26/20 <Bry Dewitt MD - Last Filed: 10/26/20 15:00> Chief complaint: Post op - abd pain <Adriana Meyers PA-C - Last Filed: 10/26/20 14:49> Narrative: Rea Parks is a 54 year old female who is 2 days s/p laparoscopic and open repair of incisional hernia with mesh on 10/24/20. She has a history of sigmoid colectomy with colostomy creation for perforated diverticulitis on 08/05/2018 and subsequent colostomy reversal on 12/08/2018. She later developed an incisional hernia that caused progressively worsening abdominal discomfort for which she was admitted to the hospital in 03/2020. Abdominal CT at that time showed a stable incisional hernia and a partial small bowel obstruction, both of which were managed conservatively. Repair of the hernia was planned but became delayed with Covid-19 pandemic. She underwent laparoscopic repair with open components of incisional hernia with mesh, lysis of adhesions on 10/24/[address] Black. She was doing well the next day and was discharged to home with the KLAUS drain in place. At home, the patient reports she tried to eat mac and cheese but had no appetite. She developed worsening abdominal pain followed by nausea and multiple episodes of vomiting throughout the night. She came to the ED for futher evaluation. She denies passing flatus or BM since prior to the surgery but endorses belching. She feels bloated. Work up included a CT scan abd/pelvis which revealed SB dilatation with a transition zone in the right abdomen. <Adriana Meyers PA-C - Last Filed: 10/26/20 14:49> Review of Systems Constitutional: Constitutional: Denies chills, Denies fever(s) and Reports poor appetite <BRANDO Rios Last Filed: 10/26/20 14:49> Eyes: Eyes: Denies blurry vision <Adriana Meyers PA-C - Last Filed: 10/26/20 14:49> ENT: Denies dizziness <BRANDO Rios Last Filed: 10/26/20 14:49> Cardiovascular: Cardiovascular: Denies chest pain, Denies rapid heart rate and Denies dyspnea <Adriana Meyers PA-C Last Filed: 10/26/20 14:49> Respiratory: Respiratory: Denies cough and Denies dyspnea <Adriana Meyers PA-C Last Filed: 10/26/20 14:49> Gastrointestinal: Gastrointestinal: Reports as per HPI and Denies hematemesis <Adriana Meyers PA-C Last Filed: 10/26/20 14:49> Genitourinary: Genitourinary: Denies hematuria and Denies dysuria <Adriana Meyers PA-C Last Filed: 10/26/20 14:49> Musculoskeletal: Musculoskeletal: Denies numbness <Adriana Meyers PA-C Last Filed: 10/26/20 14:49> Integumentary/Breasts: Skin/Breast: Denies rash <Adriana Meyers PA-C Last Filed: 10/26/20 14:49> Neurologic: Denies dizziness and Denies numbness <Adriana Meyers PA-C Last Filed: 10/26/20 14:49> [facility] Past Medical History Medical History: Medical History ACL tear Anxiety Back pain History of small bowel obstruction Knee MCL sprain Knee pain Patellofemoral arthritis of left knee PONV (postoperative nausea and vomiting) Preoperative examination Shortness of breath <Adriana Meyers PA-C Last Filed: 10/26/20 14:49> Family History Family History: Family History Father Lung disease Mother Hypertension Sister No problems noted. Son No problems noted. Daughter No problems noted. <Adriana Meyers PA-C Last Filed: 10/26/20 14:49> Surgical History Surgical History: Surgical History H/O colectomy H/O lithotripsy H/O vaginal surgery History of arthroscopy of right knee History of colostomy History of colostomy reversal History of incisional hernia repair Hx of appendectomy Hx of colonoscopy Hx of cystoscopy Previous back surgery <Adriana Meyers PA-C Last Filed: 10/26/20 14:49> Social History Social History: Social History Alcohol intake: current Alcohol intake frequency: a few times a month Smoking Status: Current every day smoker Tobacco Type: Cigarette Packs Per Day: 0 Cigarettes Per Day: 4 Years Smoked: 10+ Advance Directives: No service: No Current occupational status: employed <BRANDO Rios Last Filed: 10/26/20 14:49> Meds Allergies/Adverse reactions: Allergies Allergy/AdvReac Type Severity Reaction Status Date / Time morphine [MORPHINE] Allergy Intermediate RASH, Verified 10/24/20 06:25 facial itching lorazepam [LORAZEPAM] Allergy Unknown DISORIENTATED- Verified 10/24/20 06:25 DEPRESSION <BARNDO Rios Last Filed: 10/26/20 14:49> Home medications: Home Medications Medication Instructions Recorded Confirmed Type dicyclomine 20 mg tablet 20 mg PO .qhs PRN tab 10/05/20 10/26/20 History <BRANDO Rios Last Filed: 10/26/20 14:49> Physical Exam Vital Signs: Vital Signs: Last Vital Signs Temp 98 F 10/26/20 12:56 Pulse 100 10/26/20 12:56 Resp 15 10/26/20 12:56 BP 142/82 H 10/26/20 12:56 Pulse Ox 96 10/26/20 11:32 Body Mass Index 25.8 <BRANDO Rios Last Filed: 10/26/20 14:49> Const: General: no acute distress and alert; No comfortable <BRANDO Rios Last Filed: 10/26/20 14:49> Orientation/consciousness: patient oriented x3 <BRANDO Rios Last Filed: 10/26/20 14:49> Eyes: Sclerae: sclerae normal <BRANDO Rios Last Filed: 10/26/20 14:49> Resp: Effort & Inspection: normal respiratory effort <BRANDO Rios Last Filed: 10/26/20 14:49> Auscultation: clear to auscultation bilaterally <BRANDO Rios Last Filed: 10/26/20 14:49> Cardio: Rate: regular rate <BRANDO Rios Last Filed: 10/26/20 14:49> Rhythm: regular rhythm <BRANDO Rios Last Filed: 10/26/20 14:49> GI: Inspection: Yes distended, Yes incision (clean) and Yes other (KLAUS drain in place with serosanguineous drainage) <BRANDO Rios Last Filed: 10/26/20 14:49> Palpation (GI): Soft to palpation, Tenderness to palpation present (GI) (diffuse, moderate), no guarding, not rigid and No Rebound tenderness present <BRANDO Rios Last Filed: 10/26/20 14:49> Skin: General skin exam: no rashes or lesions noted <BRANDO Rios Last Filed: 10/26/20 14:49> Neuro: General: patient oriented x3 <BRANDO Rios Last Filed: 10/26/20 14:49> Extrem: General: Yes no clubbing, cyanosis or edema <BRANDO Rios Last Filed: 10/26/20 14:49> Results Results Labs: Short CBC 10/26/20 Range/Units 06:25 WBC 10.5 (4.8-10.8) X10*3/uL Hgb 15.4 (12.0-16.0) g/dl Hct 46.6 (37-47) % Plt Count 242 D (160-400) X10*3/uL BMP 10/26/20 06:25 Sodium 140 Potassium 4.0 Chloride 99 Carbon Dioxide 30 H BUN 7 L Creatinine 0.82 Calcium 9.4 D Liver Function 10/26/20 Range/Units 06:25 Total Bilirubin 0.7 (0.0-1.0) mg/dL Direct Bilirubin 0.3 (0.0-0.5) mg/dL AST 29 (5-31) U/L ALT 25 (0-31) U/L Alkaline Phosphatase 88 (39-117) U/L Albumin 4.1 (3.5-5.0) g/dL CT scan abd/pelvis- small bowel distention which is fluid-filled. Distal small bowel actually measures up to 2.8 cm. There is no bowel wall thickening. Relative abrupt transition zone is noted within the right abdomen within the right lower quadrant with the terminal ileum appears decompressed. <Adriana Meyers PA-C - Last Filed: 10/26/20 14:49> Abdomen CT scan report/results: image reviewed <BRANDO Rios Last Filed: 10/26/20 14:49> Assessment and Plan (1) SBO (small bowel obstruction): Status: Acute <Adriana Meyers PA-C - Last Filed: 10/26/20 14:49> 54 year old female with abdominal pain, distention and vomiting who is 2 days s/p laparoscopic and open repair of incisional hernia with mesh on 10/24/20 for an incisional hernia with a history of sigmoid colectomy with colostomy creation for perforated diverticulitis and subsequent colostomy reversal. CT scan demonstrates dilated small bowel loops with a transition in the right abdomen. Will admit for further treatment of SBO. NGT inserted in the ED. Cont NGT and NPO status for decompression and bowel rest, IVF, IV dilaudid for pain control and IV antiemetics as needed. Encouraged to ambulate at least 4x per day. Await return of GI fxn. Further plan dependent on clinical course. Her incision is clean and there is no evidence of hernia recurrence. Cont KLAUS drain and abdominal binder. Patient seen and case discussed with Dr. Dewitt. <Adriana Meyers PA-C - Last Filed: 10/26/20 14:49> Pt with nausea and vomitting since yesterday - she underwent repair of an incisional hernia with mesh with Dr. Black 2 days ago and was just discharged yesterday CT shows dilated SB loops with a transition pt in the RLQ c/w a PSBO NGT NPO IVF exam otherwise benign KLAUS drain - serosanguinous seen and examined - agree with INGRID Meyers <Bry Dewitt MD - Last Filed: 10/26/20 15:00> (2) History of incisional hernia repair: Problem details: 10/24/2020, laparoscopic and open incisional hernia repair with mesh <Adriana Meyers PA-C - Last Filed: 10/26/20 14:49> Status: Acute <Adriana Meyers PA-C - Last Filed: 10/26/20 14:49> (3) Incisional hernia: Status: Acute <Adriana Meyers PA-C - Last Filed: 10/26/20 14:49>
[2020-10-26] MEDS: Lidocaine HCl 4 % MPF 5 ML AMPUL 3 ML INHALE (14:32)
[2020-10-26] MEDS: Lidocaine HCl 4 % Laryng-O-Jet 4 ML 1 APPL TOPICAL (14:43)
--- NOTE | 2020-10-26 14:55 | XR_ITS ---
EXAMINATION: XR CHEST CLINICAL INFORMATION: NG tube placement. COMPARISON: Chest radiographs 12/08/2018, 12/01/2018, CT abdomen 10/26/2020 TECHNIQUE: Portable upright AP view of the chest was obtained. FINDINGS: The NG tube is in the abdomen with tip at gastric fundus. There are low lung volumes. There is subsegmental atelectasis right infrahilar region and atelectasis versus infiltrate again seen left posterior base. The heart is normal in size. The vascularity is normal. The hilar and mediastinal contours and bony structures are unremarkable. XR/XR chest 1V IMPRESSION: 1. NG tube in abdomen, tip at gastric fundus. 2. Subsegmental atelectasis right infrahilar region. 3. Atelectasis versus subsegmental infiltrate left posterior base.
[2020-10-26] MEDS: Ketorolac Tromethamine 30 MG/ML VIAL IVPUSH ×2 (15:31→21:30)
[2020-10-26] MEDS: Lactated Ringers 1,000 ML 100 ML IVCONT (15:31)
[2020-10-26] MEDS: 0.9 % Sodium Chloride Flush 3 ML SYRINGE IVFLUSH (16:15)
[2020-10-26] MEDS: HYDROmorphone HCl 0.5 MG/0.5 ML SYRINGE IVPUSH ×2 (17:55→21:56)
[2020-10-27] VITALS (7 sets, daily range): BP systolic 132–167; BP diastolic 63–82; PULSE 83–104; RESP 18–20; TEMP 36.6–37; O2SAT 93–98
[2020-10-27] MEDS: HYDROmorphone HCl 0.5 MG/0.5 ML SYRINGE IVPUSH ×6 (01:56→23:50)
[2020-10-27] MEDS: Lactated Ringers 1,000 ML 100 ML IVCONT (01:57)
[2020-10-27] MEDS: Ketorolac Tromethamine 30 MG/ML VIAL IVPUSH ×3 (04:50→17:30)
[2020-10-27] MEDS: ondansetron HCL 4 MG/2 ML VIAL IVPUSH ×2 (06:02→16:30)
[2020-10-27 07:26] LABS: Anion Gap 19 (12-20); Blood Urea Nitrogen 13 mg/dL (9-16); Calcium 8.7 mg/dL (8.4-10.2); Carbon Dioxide 23 mmol/L (22-29); Chloride 106 mmol/L (96-108); Creatinine Clr Calc Pharmacy 96.1; Estimated Glomerular Filt Rate > 60; Glucose Random 81 mg/dL (60-115); Sodium 144 mmol/L (135-145)
[2020-10-27] MEDS: 0.9 % Sodium Chloride Flush 3 ML SYRINGE IVFLUSH ×3 (08:28→23:51)
--- NOTE | 2020-10-27 11:10 | P.PNGS_ITS ---
Subjective Subjective Date of Service: 10/27/20 <INGRID Eaton - Last Filed: 10/27/20 13:44> 10/27/20 <Huseyin Nevarez MD - Last Filed: 10/27/20 14:19> Patient reports: no new complaints <INGRID Eaton - Last Filed: 10/27/20 13:44> Interval history: 54 yo female admitted last night for PSBO in the setting or prior hernia repair 2 days ago. She states that her ABD is feeling better. She reports a BM this morning. She wants the NGT out. <INGRID Eaton - Last Filed: 10/27/20 13:44> Physical Exam Vital Signs: Vital Signs: Last Vital Signs Temp 98.6 F 10/27/20 07:49 Pulse 83 10/27/20 07:49 Resp 20 10/27/20 07:49 BP 133/82 10/27/20 07:49 Pulse Ox 94 10/27/20 07:49 Body Mass Index 25.8 <INGRID Eaton - Last Filed: 10/27/20 13:44> Const: General: cooperative and no acute distress <INGRID Eaton - Last Filed: 10/27/20 13:44> GI: Other: NGT with < 100 cc drainage overnight <INGRID Eaton - Last Filed: 10/27/20 13:44> Inspection: Yes normal to inspection and Yes other ( Incisions c/d/i. No drainage or skin changes. KLAUS drain with <10 cc's.) <INGRID Eaton - Last Filed: 10/27/20 13:44> Palpation (GI): Soft to palpation and Tenderness to palpation present (GI) (appropriate post-op tenderness.) <INGRID Eaton - Last Filed: 10/27/20 13:44> Skin: General skin exam: no rashes or lesions noted <INGRID Eaton Last Filed: 10/27/20 13:44> Extrem: General: Yes no calf tenderness <INGRID Eaton - Last Filed: 10/27/20 13:44> Progress Note: A&P Assessment and plan (1) SBO (small bowel obstruction): Problem details: PSBO. Symptoms improving. Moving bowels. She is POD #3 from hernia repair. She appears to be healing well from this but continues to have post-op tenderness. ABD soft. <INGRID Eaton - Last Filed: 10/27/20 13:44> Status: Acute <INGRID Eaton - Last Filed: 10/27/20 13:44> Assessment and Plan: Will D/C NGT KLAUS drain will stay in until tomorrow Continue pain mgmt, IVF Will advance diet to clear liquids. Encourage OOB and IS. <INGRID Eaton - Last Filed: 10/27/20 13:44> . General Surgery Attending - Grupo Nevarez M.D. Patient was evaluated and examined at the bedside with Mr. Petr Nichols PA-C. I confirm above findings and plan as documented. Pt had BM, NGT was removed. She is comfortable. KLAUS not draining but will leave for now considering its placement. Clear liquids and advance as masha. <Huseyin Nevarez MD - Last Filed: 10/27/20 14:19> Fall Risk Details Current Medications: Current Medications Generic Name Dose Route Start Last Admin Trade Name Freq PRN Reason Stop Dose Admin Hydromorphone HCl 0.5 mg 10/26/20 14:16 10/27/20 10:06 Hydromorphone Hcl 0.5 Mg/0.5 Ml Syringe IVPUSH 0.5 mg Q4H PRN Administration Pain, Severe (Pain Scale 7-10) Lactated Ringer's 1,000 mls @ 100 mls/hr 10/26/20 14:15 10/27/20 01:57 Lr IVCONT 100 mls/hr .Q10H SUELLEN Administration Promethazine HCl 12.5 mg/ 50.5 mls @ 202 mls/hr 10/26/20 14:14 10/26/20 23:01 Sodium Chloride IV Infused Q8H PRN Infusion Nausea Acetaminophen 1,000 mg in 100 mls @ 400 mls/hr 10/26/20 14:15 10/27/20 09:34 Ofirmev IV Infused Q6H PRN Infusion abdominal pain Ketorolac Tromethamine 30 mg 10/26/20 14:15 10/27/20 04:50 Ketorolac Tromethamine 30 Mg/Ml Vial IVPUSH 10/31/20 14:14 30 mg Q6H PRN Administration abdominal pain Multi-Ingred Medicated Throat [place] 1 spray 10/26/20 14:50 10/27/20 04:52 Throat [place], Medicated 20 Ml Bottle MUCOUS MEM 1 spray Q2H PRN Administration Sore Throat Ondansetron HCl 4 mg 10/26/20 14:09 10/27/20 06:02 Ondansetron Hcl 4 Mg/2 Ml Vial IVPUSH 4 mg Q8H PRN Administration nausea Pharmacy Consult 1 each 10/26/20 06:10 Consult Rx Perform Med Rec MISCELLANE 10/28/20 06:09 ONCE PRN Consult order Sodium Chloride 3 ml 10/26/20 16:00 10/27/20 08:28 0.9 % Sodium Chloride Flush 3 Ml Syringe IVFLUSH 3 ml QSHIFT SUELLEN Administration <INGRID Eaton - Last Filed: 10/27/20 13:44> Time Spent With Patient Time: Total time spent is greater than 50% in coordination of care (as documented) at patient's floor/unit and/or counseling patient: <INGRID Eaton - Last Filed: 10/27/20 13:44> Time with patient: 15 - 24 minutes <Huseyin Nevarez MD - Last Filed: 10/27/20 14:19> Progress Note: Quality VTE Deep Vein Thrombosis/Pulmonary Embolism Present on Admission: No <INGRID Eaton - Last Filed: 10/27/20 13:44>
--- NOTE | 2020-10-27 15:56 | MHC.CM.PN ---
Pt reports she lives at home with her mother and adult children. Pt reports she is independent at baseline and had no services or DME TRIAGE NURSE. Pt reports she has a HCP completed already naming her daughter as her agent. Pt confirms her PCP is Chaka Gore. Pt will DC home with no services Family will transport.
[2020-10-28] MEDS: Ketorolac Tromethamine 30 MG/ML VIAL IVPUSH (01:54)
[2020-10-28 04:00] VITALS: BP 151/82; PULSE 88; RESP 18; TEMP 35.9; O2SAT 92
[2020-10-28] MEDS: HYDROmorphone HCl 0.5 MG/0.5 ML SYRINGE IVPUSH ×2 (04:34→08:28)
[2020-10-28 08:00] VITALS: BP 140/64; PULSE 83; RESP 20; TEMP 37.2; O2SAT 97
[2020-10-28 08:28] VITALS: RESP 18
[2020-10-28] MEDS: 0.9 % Sodium Chloride Flush 3 ML SYRINGE IVFLUSH (08:28)
--- NOTE | 2020-10-28 08:52 | PM.PNGS ---
Subjective Subjective Date of Service: 10/28/20 <INGRID Eaton - Last Filed: 10/28/20 08:57> 10/28/20 <Huseyin Nevarez MD - Last Filed: 10/28/20 14:46> Patient reports: no new complaints and feels better <INGRID Eaton - Last Filed: 10/28/20 08:57> Interval history: She states that she is feeling well enough to go home. Tolerating a clear liquid diet. Moving her bowels. She is OOB in the hallways. SHe does still report some ABD pain but this is mild. <INGRID Eaton - Last Filed: 10/28/20 08:57> Physical Exam Vital Signs: Vital Signs: Last Vital Signs Temp 99.0 F 10/28/20 08:00 Pulse 83 10/28/20 08:00 Resp 18 10/28/20 08:28 BP 140/64 H 10/28/20 08:00 Pulse Ox 97 10/28/20 08:00 Body Mass Index 25.8 <INGRID Eaton - Last Filed: 10/28/20 08:57> Const: General: cooperative and no acute distress <INGRID Eaton - Last Filed: 10/28/20 08:57> Resp: Effort & Inspection: normal respiratory effort and able to speak in complete sentences <INGRID Eaton Last Filed: 10/28/20 08:57> Cardio: Rate: regular rate <INGRID Eaton - Last Filed: 10/28/20 08:57> GI: Inspection: Yes normal to inspection <INGRID Eaton - Last Filed: 10/28/20 08:57> Palpation (GI): Soft to palpation and Tenderness to palpation present (GI) (ongoing post-op tenderness) <INGRID Eaton Last Filed: 10/28/20 08:57> Skin: General skin exam: no rashes or lesions noted <INGRID Eaton Last Filed: 10/28/20 08:57> Extrem: General: Yes no calf tenderness <INGRID Eaton Last Filed: 10/28/20 08:57> Progress Note: A&P Assessment and plan (1) SBO (small bowel obstruction): Problem details: PSBO. Symptoms improving. Moving bowels. She is POD #4 from hernia repair. She appears to be healing well from this but continues to have post-op tenderness. ABD soft. She is no longer complaining of obstruction symptoms. <INGRID Eaton - Last Filed: 10/28/20 08:57> Status: Acute <INGRID Eaton - Last Filed: 10/28/20 08:57> Assessment and Plan: Will advance diet to full liquids Convert IV--> PO meds. Discharge later today possible. <INGRID Eaton - Last Filed: 10/28/20 08:57> . General Surgery Attending - Grupo Nevarez M.D. Patient was evaluated and examined at the bedside with Mr. Petr Nichols PA-C. I confirm above findings and plan as documented. Patient wishes to go home. Other than postop pain, she is doing well, having had BM yesterday and today, and tolerating diet. Will send home on Dilaudid and Ibuprofen oral tablets. KLAUS drain has not drained much at all for > 24 hours. We will remove it prior to discharge. F/U with Dr. Whiteside. <Huseyin Nevarez MD - Last Filed: 10/28/20 14:46> Fall Risk Details Current Medications: Current Medications Generic Name Dose Route Start Last Admin Trade Name Freq PRN Reason Stop Dose Admin Hydromorphone HCl 0.5 mg 10/26/20 14:16 10/28/20 08:28 Hydromorphone Hcl 0.5 Mg/0.5 Ml Syringe IVPUSH 0.5 mg Q4H PRN Administration Pain, Severe (Pain Scale 7-10) Promethazine HCl 12.5 mg/ 50.5 mls @ 202 mls/hr 10/26/20 14:14 10/26/20 23:01 Sodium Chloride IV Infused Q8H PRN Infusion Nausea Acetaminophen 1,000 mg in 100 mls @ 400 mls/hr 10/26/20 14:15 10/28/20 08:36 Ofirmev IV 400 mls/hr Q6H PRN Administration abdominal pain Ketorolac Tromethamine 30 mg 10/26/20 14:15 10/28/20 01:54 Ketorolac Tromethamine 30 Mg/Ml Vial IVPUSH 10/31/20 14:14 30 mg Q6H PRN Administration abdominal pain Multi-Ingred Medicated Throat [place] 1 spray 10/26/20 14:50 10/27/20 04:52 Throat [place], Medicated 20 Ml Bottle MUCOUS MEM 1 spray Q2H PRN Administration Sore Throat Ondansetron HCl 4 mg 10/26/20 14:09 10/27/20 16:30 Ondansetron Hcl 4 Mg/2 Ml Vial IVPUSH 4 mg Q8H PRN Administration nausea Sodium Chloride 3 ml 10/26/20 16:00 10/28/20 08:28 0.9 % Sodium Chloride Flush 3 Ml Syringe IVFLUSH 3 ml QSHIFT SUELLEN Administration <INGRID Eaton - Last Filed: 10/28/20 08:57> Time Spent With Patient Time: Total time spent is greater than 50% in coordination of care (as documented) at patient's floor/unit and/or counseling patient: <INGRID Eaton - Last Filed: 10/28/20 08:57> Time with patient: 15 - 24 minutes <Huseyin Nevarez MD - Last Filed: 10/28/20 14:46> Progress Note: Quality VTE Deep Vein Thrombosis/Pulmonary Embolism Present on Admission: No <INGRID Eaton - Last Filed: 10/28/20 08:57>
[2020-10-28] MEDS: Acetaminophen 325 MG TABLET 650 MG PO ×2 (11:57→15:46)
[2020-10-28] MEDS: HYDROmorphone HCl 2 MG TABLET 1 MG PO ×2 (11:58→15:46)
[2020-10-28 12:00] VITALS: BP 128/78; PULSE 83; RESP 20; TEMP 36.9; O2SAT 97
--- NOTE | 2020-10-29 08:27 | P.DS_ITS ---
DS: Providers Provider Date of Service: 10/29/20 Date of admission: 10/26/20 14:09 Primary care physician: Unknown Physician DS: Diagnosis Discharge Diagnosis (1) SBO (small bowel obstruction): Status: Acute (2) History of incisional hernia repair: Status: Acute Problem details: 10/24/2020, laparoscopic and open incisional hernia repair with mesh DS: Medications Discharge Medications Home Medications: Previous Rx's Medication Instructions Recorded acetaminophen 650 mg PO Q4H PRN 30 Days #30 tab 10/28/20 hydromorphone 1 mg PO Q6H PRN 5 Days #20 tab 10/28/20 ibuprofen 800 mg PO TID 10 Days #30 tab 10/28/20 DS: Summary Hospital Course Hospital Course: BRIEF HPI: Rea Parks is a 54 year old female who is 2 days s/p laparoscopic and open repair of incisional hernia with mesh on 10/24/20. She has a history of sigmoid colectomy with colostomy creation for perforated diverticulitis on 08/05/2018 and subsequent colostomy reversal on 12/08/2018. She later developed an incisional hernia that caused progressively worsening abdominal discomfort for which she was admitted to the hospital in 03/2020. Abdominal CT at that time showed a stable incisional hernia and a partial small bowel obstruction, both of which were managed conservatively. Repair of the hernia was planned but became delayed with Covid-19 pandemic. She underwent laparoscopic repair with open components of incisional hernia with mesh, lysis of adhesions on 10/24/[address] Black. She was doing well the next day and was discharged to home with the KLAUS drain in place. At home, the patient reports she tried to eat mac and cheese but had no appetite. She developed worsening abdominal pain followed by nausea and multiple episodes of vomiting throughout the night. She came to the ED for futher evaluation. She denies passing flatus or BM since prior to the surgery but endorses belching. She feels bloated. Work up included a CT scan abd/pelvis which revealed SB dilatation with a transition zone in the right abdomen. HOSPITAL COURSE: The patient was admitted to the surgical service under Dr. Dewitt for further treatment of the PSBO. An NGT was placed in the ED which was continued for bowel decompression, IVF and IV analgesics were continued. She was encouraged to ambulate. The patient had an uncomplicated hospital stay and her PSBO resolved with conservative measures. On HD #1, her symptoms improved and she began to pass flatus and had a bowel movement. Her NGT was removed and she was started on clear liquids. The following day she continued to do well and her diet was advanced. Her abdominal pain was improved and was incisional in nature. She was tolerating her diet without nausea or vomiting and continued with good GI function. She felt ready for discharge. Her KLAUS had scanty serous drainage over 24h and was removed. She was discharged to home on 10/28/20 in stable condition. She is to follow up with Dr. Black in office post operatively. Status at Discharge Functional status at discharge: independent ambulation Overall status at discharge: patient is progressing back to baseline Time Spent with Patient Time attestation: Total time spent providing and/or coordinating discharge services: Discharge coordination time: Less than 30 minutes Quality: VTE Deep Vein Thrombosis/Pulmonary Embolism Present on Admission: No Physical Exam Vital Signs: Vital Signs: Last Vital Signs Temp 98.4 F 10/28/20 12:00 Pulse 83 10/28/20 12:00 Resp 20 10/28/20 12:00 BP 128/78 10/28/20 12:00 Pulse Ox 97 10/28/20 12:00 Body Mass Index 25.8 Const: General: comfortable, no acute distress and alert Orientation/consciousness: patient oriented x3 Eyes: Sclerae: sclerae normal Resp: Effort & Inspection: normal respiratory effort Cardio: Rate: regular rate GI: Inspection: No distended and Yes incision (clean) Palpation (GI): Soft to palpation and Tenderness to palpation present (GI) (mild, incisional) Skin: General skin exam: no rashes or lesions noted Neuro: General: patient oriented x3 Extrem: General: Yes no clubbing, cyanosis or edema DS: Data Data Completed and Pending Completed studies during hospitalization [Text1]: Procedures Inspection of Abdominal Wall, Percutaneous Endoscopic Approach (10/24/20) Supplement Abdominal Wall with Synthetic Substitute, Open Approach (10/24/20) Labs on day of discharge: Laboratory Tests 10/26/20 10/26/20 10/26/20 06:24 06:25 06:25 WBC 10.5 RBC 4.95 Hgb 15.4 Hct 46.6 MCV 94.1 MCH 31.1 MCHC 33.0 RDW 12.3 Plt Count 242 D MPV 10.2 Immature Gran % (Auto) 0.7 H Neut % (Auto) 79.5 H Lymph % (Auto) 11.9 L Cobb % (Auto) 6.2 Eos % (Auto) 1.4 Baso % (Auto) 0.3 Lymph # (Auto) 1.3 Cobb # (Auto) 0.7 Eos # (Auto) 0.2 Baso # (Auto) 0.0 Abs Immat Gran (auto) 0.07 H Absolute Neuts (auto) 8.4 H Absolute Nucleated RBC 0.000 Nucleated RBC % (auto) 0.0 Sodium 140 Potassium 4.0 Chloride 99 Carbon Dioxide 30 H Anion Gap 15 BUN 7 L Creatinine 0.82 Estim Creat Clear Calc 80.9 Estimated GFR > 60 Random Glucose 131 H Lactic Acid 1.3 Calcium 9.4 D Magnesium 2.2 Total Bilirubin 0.7 Direct Bilirubin 0.3 AST 29 ALT 25 Alkaline Phosphatase 88 Total Protein 6.9 Albumin 4.1 Lipase COVID-19 (REBECCA) COVID-[employer] 10/26/20 10/26/20 10/27/20 06:25 06:26 05:27 WBC RBC Hgb Hct MCV MCH MCHC RDW Plt Count MPV Immature Gran % (Auto) Neut % (Auto) Lymph % (Auto) Cobb % (Auto) Eos % (Auto) Baso % (Auto) Lymph # (Auto) Cobb # (Auto) Eos # (Auto) Baso # (Auto) Abs Immat Gran (auto) Absolute Neuts (auto) Absolute Nucleated RBC Nucleated RBC % (auto) Sodium 144 Potassium 4.0 Chloride 106 Carbon Dioxide 23 Anion Gap 19 BUN 13 D Creatinine 0.69 Estim Creat Clear Calc 96.1 Estimated GFR > 60 Random Glucose 81 D Lactic Acid Calcium 8.7 D Magnesium Total Bilirubin Direct Bilirubin AST ALT Alkaline Phosphatase Total Protein Albumin Lipase 21 COVID-19 (REBECCA) Negative COVID-19 [employer] See Note Discharge Plan Discharge Anticipated Discharge Date/Time: 10/28/20 14:39 Patient Disposition: Home, Self-Care Referrals: Physician,Unknown [Primary Care Provider] - Discharge Medications: New acetaminophen 325 mg Tablet 650 mg PO Q4H PRN (Reason: Pain, Moderate (Pain Scale 4-6) 30 Days Qty: 30 RF: 0 hydromorphone 2 mg Tablet 1 mg PO Q6H PRN (Reason: Breakthrough Pain) 5 Days Qty: 20 RF: 0 ibuprofen 800 mg tablet 800 mg PO TID 10 Days Qty: 30 RF: 0 Discontinued docusate sodium [Colace] 100 mg capsule 100 mg PO BID Qty: 30 RF: 1 hydromorphone [Dilaudid] 2 mg tablet 2 mg PO Q4H PRN (Reason: pain (scale score 7-10)) Qty: 40 RF: 0 acetaminophen 500 mg tablet 1,000 mg PO Q6H Qty: 60 RF: 1 ondansetron HCl [Zofran] 4 mg tablet 4 mg PO Q6H PRN (Reason: nausesa) Qty: 20 RF: 1 dicyclomine 20 mg tablet 20 mg PO .qhs PRN (Reason: Abdominal Discomfort) RF: 0 Discharge Orders: Discharge Order (Routine); Ordered 10/28/20 Ordered By: Petr Nichols Diet: advance to usual diet Activity on Discharge: No heavy lifting Discharge Date/Time: 10/28/20 15:45 Visit Report Forms: Patient Portal Discharge page Care Plan Goals: Return to prior functional status Health Concerns: Infection recurrence Plan of Treatment: F/U with your surgeon as an outpatient for further evaluation and care
== END 2020-10-28 15:45 | disposition home or self-care (01) | DRG 247 ==
LOC: HO.ED 13:43 → HO.IMC 18:03
PROVIDERS: Emergency Medicine; Physician Assistant Surgical; Admitting Provider Surgery; Emergency Provider Emergency Medicine; Visit Provider Surgery
DX: K56.609 Unspecified intestinal obstruction, unspecified as to partial versus complete obstruction (principal); F17.210 Nicotine dependence, cigarettes, uncomplicated; Z20.828 Contact with and (suspected) exposure to other viral communicable diseases; Z71.6 Tobacco abuse counseling; Z88.5 Allergy status to narcotic agent; Z79.1 Long term (current) use of non-steroidal anti-inflammatories (NSAID); Z79.899 Other long term (current) drug therapy
CPT/HCPCS: 36415; 71045; 74177; 80048; 80076; 83605; 83690; 83735; 85025; 87635; 96361; 96374; 96375; 96376; 99285; J0131; J1170; J1885; J2405; J2765; Q9967

== ENCOUNTER → 2020-11-13 14:30 | Outpatient (BNVA) | payer OTHER, SELFPAY | PROVIDERS: Visit Provider Surgery ==

== ENCOUNTER → 2020-11-20 10:09 | Outpatient (BNVA) | payer OTHER, SELFPAY | PROVIDERS: Visit Provider Surgery ==

== ENCOUNTER → 2020-12-11 09:31 | Outpatient (BNVA) | payer OTHER, SELFPAY | PROVIDERS: PCP Internal Medicine; Visit Provider Surgery ==

== ENCOUNTER → 2020-12-25 10:36 | Outpatient (BNVA) | payer OTHER, SELFPAY | PROVIDERS: PCP Internal Medicine; Visit Provider Surgery ==

== ENCOUNTER → 2021-01-15 09:39 | Outpatient (BNVA) | payer OTHER, SELFPAY | PROVIDERS: PCP Internal Medicine; Visit Provider Surgery | DX: R10.9 Unspecified abdominal pain (principal) ==

== ENCOUNTER 2021-01-26 10:22 | Outpatient (REF) | payer OTHER, SELFPAY ==
--- NOTE | ~2021-01-26 | MM_ITS ---
EXAMINATION: MM SCREENING DIGITAL BREAST TOMOSYNTHESIS, BILATERAL CLINICAL INFORMATION: Screening. Asymptomatic. The lifetime risk of breast cancer based on the Tyrer-Cuzick Model is 13%. COMPARISON: Mammography: 01/27/2017, 08/23/2015 TECHNIQUE: Digital breast tomosynthesis is performed in both the craniocaudal and mediolateral oblique views along with computer-aided detection (CAD). Synthesized 2D images are generated from the tomosynthesis. FINDINGS: There are scattered areas of fibroglandular density (ACR BI-RADS breast composition Category b). There are no significant masses, abnormal calcifications, or other abnormalities. Parenchymal pattern is similar to prior exams. The axilla and skin contours are unremarkable. MM/MM tomosynthesis screening BI IMPRESSION: No mammographic evidence of malignancy. ASSESSMENT: BI-RADS 1: Negative RECOMMENDATION: Routine annual mammography screening. This patient's information was entered into a reminder system with a target due date for their next mammogram.
== END 2021-01-26 10:23 | disposition home or self-care (01) ==
LOC: HO.MAMMO 10:22
PROVIDERS: Visit Provider Internal Medicine
DX: Z12.31 Encounter for screening mammogram for malignant neoplasm of breast (principal)
CPT/HCPCS: 77063; 77067

== ENCOUNTER → 2021-02-11 13:34 | Outpatient (BNVA) | payer OTHER, SELFPAY | PROVIDERS: PCP Internal Medicine; Visit Provider Surgery ==

== ENCOUNTER → 2021-02-13 13:14 | Outpatient (BNVA) | payer OTHER, SELFPAY | PROVIDERS: PCP Internal Medicine; Visit Provider Advanced Practice Midwife | DX: Z30.432 Encounter for removal of intrauterine contraceptive device (principal); F17.210 Nicotine dependence, cigarettes, uncomplicated; Z88.6 Allergy status to analgesic agent; Z88.8 Allergy status to other drugs, medicaments and biological substances | CPT/HCPCS: 58301 ==

== ENCOUNTER → 2021-03-05 13:44 | Outpatient (BNVA) | payer OTHER, SELFPAY | PROVIDERS: PCP Internal Medicine; Visit Provider Surgery ==

== ENCOUNTER → 2021-03-22 09:34 | Outpatient (BNVA) | payer OTHER, SELFPAY | PROVIDERS: PCP Internal Medicine; Visit Provider Internal Medicine ==

== ENCOUNTER 2021-03-27 06:56 | Outpatient (REF) | payer OTHER, SELFPAY | END 2021-03-27 06:57 | disposition home or self-care (01) | LOC: HO.RADIR 06:56 | PROVIDERS: Visit Provider Internal Medicine | DX: G89.28 Other chronic postprocedural pain (principal); R10.9 Unspecified abdominal pain | CPT/HCPCS: 64488; J1040 ==

== ENCOUNTER → 2021-04-08 09:27 | Outpatient (BNVA) | payer OTHER, SELFPAY | PROVIDERS: PCP Internal Medicine; Visit Provider Internal Medicine ==

== ENCOUNTER → 2021-04-16 13:36 | Outpatient (BNVA) | payer OTHER, SELFPAY | PROVIDERS: PCP Internal Medicine; Referring Provider Internal Medicine; Visit Provider Surgery | DX: R10.9 Unspecified abdominal pain (principal); Z98.890 Other specified postprocedural states; Z87.19 Personal history of other diseases of the digestive system ==

== ENCOUNTER 2021-05-08 07:26 | Outpatient (REF) | payer OTHER, SELFPAY ==
--- NOTE | ~2021-05-08 | XR_ITS ---
EXAMINATION: XR CHEST CLINICAL INFORMATION: Nonspecific finding of lung field COMPARISON: Previous chest x-ray most recent October [address] most recent July 2019 TECHNIQUE: Frontal view of the chest was obtained. FINDINGS: The cardiac and mediastinal contours are normal. There is a 1 cm left mid lung pulmonary nodule that is stable. The lungs are otherwise clear. There is no pleural effusion or pneumothorax. There are degenerative changes of the thoracic spine. XR/XR chest 1V IMPRESSION: Stable 1 cm left pulmonary nodule.
== END 2021-05-08 07:27 | disposition home or self-care (01) ==
LOC: HO.XRAY 07:26
PROVIDERS: PCP Internal Medicine; Visit Provider Internal Medicine
DX: R91.8 Other nonspecific abnormal finding of lung field (principal)
CPT/HCPCS: 71045

== ENCOUNTER → 2021-05-31 08:09 | Outpatient (BNVA) | payer OTHER, SELFPAY | PROVIDERS: PCP Internal Medicine; Visit Provider Internal Medicine ==

== ENCOUNTER 2021-06-12 06:18 | Outpatient (REF) | payer OTHER, SELFPAY | END 2021-06-12 06:19 | disposition home or self-care (01) | LOC: HO.RADIR 06:18 | PROVIDERS: Visit Provider Internal Medicine | DX: R10.84 Generalized abdominal pain (principal); F17.210 Nicotine dependence, cigarettes, uncomplicated | CPT/HCPCS: 64488; J1040 ==

== ENCOUNTER → 2021-06-19 10:28 | Outpatient (BNVA) | payer SELFPAY | PROVIDERS: PCP Internal Medicine | DX: Z02.79 Encounter for issue of other medical certificate (principal) ==